=== PATIENT | female | born 1930 | race Caucasian/White ===

== ENCOUNTER 2017-01-07 14:10 | Emergency (ER) | payer MEDICARE, OTHER ==
[~2017-01-07] VITALS: Ht 162.6 cm; Wt 92.0 kg
[2017-01-07 14:21] VITALS: Ht 162.6 cm; Wt 92.0 kg
== END 2017-01-07 16:06 | disposition left against medical advice (07) ==
LOC: E/R 14:10
DX: Z53.21 Procedure and treatment not carried out due to patient leaving prior to being seen by health care provider (principal)